=== PATIENT | female | born 1985 | race Caucasian/White ===

== ENCOUNTER 2021-04-07 11:07 | Day surgery (SDC) | payer OTHER ==
[~2021-04-07] VITALS: Ht 165.1 cm; Wt 58.2 kg
[~2021-04-07 11:07] MED LIST: SODIUM CHLORIDE 0.9% 1,000 ML ONE
[2021-04-07] MEDS ORDERED: SODIUM CHLORIDE 0.9% 1,000 ML IV ONE (11:30)
[2021-04-07 11:57] LABS: COVID AG,FIA SOURCE NASOPHARYNGEAL
[2021-04-07] MEDS ORDERED: PROPOFOL 1% 20 ML VIAL IVP ONE (12:00)
[2021-04-07] MEDS ORDERED: LIDOCAINE/PF 1% 2 ML VIAL ONE (13:09)
[2021-04-07] MEDS ORDERED: LIDOCAINE/PF 2% 5 ML VIAL ONE (13:10)
== END 2021-04-07 15:05 | disposition home or self-care (01) ==
LOC: SURGERY 11:07
PROVIDERS: ATTEND Internal Medicine Gastroenterology
DX: R10.32 Left lower quadrant pain (principal); K63.5 Polyp of colon; Z80.0 Family history of malignant neoplasm of digestive organs
CPT/HCPCS: 45385; 84703; 87426; C1769; C9803; J3490 ×2; J7030; J2704